=== PATIENT | female | born 1975 | race Caucasian/White ===

== ENCOUNTER 2019-10-16 07:50 | Outpatient (CLI) | payer BC ==
[2019-10-16] MEDS ORDERED: iohexol 300mg/ml 100ml inj. ONE (08:33)
== END 2019-10-16 23:59 | disposition home or self-care (01) ==
LOC: 64 CT 07:50
DX: C68.9 Malignant neoplasm of urinary organ, unspecified (principal); K76.89 Other specified diseases of liver; J98.11 Atelectasis; M47.814 Spondylosis without myelopathy or radiculopathy, thoracic region; Z90.710 Acquired absence of both cervix and uterus
CPT/HCPCS: 71260; 74177; Q9967

== ENCOUNTER 2024-03-21 18:47 | Emergency (ER) | payer MEDICARE, MEDICAID ==
[~2024-03-21] VITALS: Ht 172.7 cm; Wt 96.4 kg
[2024-03-21] MEDS: normal saline 1000ml 1,000 ML IV ONE (20:37)
[2024-03-21] MEDS: diazepam inj 5 MG/ML inj. IV ONE (20:37)
[2024-03-21 20:41] LABS: BASOPHILS % (AUTO) 0.4 % (0-1); EOSINOPHILS # (AUTO) 0.1 X10'3 (0-0.9); EOSINOPHILS % (AUTO) 1.9 % (0-6); HEMATOCRIT 34.2 % (35.0-45.0); HEMOGLOBIN 11.1 g/dl (12.0-16.0); LYMPHOCYTES # (AUTO) 1.1 X10'3 (1.1-4.8); LYMPHOCYTES % (AUTO) 18.4 % (21-51); MEAN CORPUSCULAR HEMOGLOBIN 29.9 PG (27.0-31.0); MEAN CORPUSCULAR HGB CONC 32.3 g/dL (33.0-36.5); MEAN CORPUSCULAR VOLUME 92.6 FL (78-98); MONOCYTES # (AUTO) 0.7 X10'3 (0-0.9); MONOCYTES % (AUTO) 10.5 % (2-12); NEUTROPHILS # (AUTO) 4.3 X10'3 (1.8-7.7); NEUTROPHILS % (AUTO) 68.8 % (42-75); PLATELET COUNT 224 X10'3 (140-440); RED CELL DISTRIBUTION WIDTH 14.6 % (11.5-14.5); WHITE BLOOD COUNT 6.2 X10'3 (4.5-11.0)
[2024-03-21 20:57] LABS: ALANINE AMINOTRANSFERASE 27 U/L (12-78); ALBUMIN 3.6 G/DL (3.4-5.0); ALBUMIN/GLOBULIN RATIO 1.4 (1.1-1.5); ALKALINE PHOSPHATASE 80 IU/L (46-116); ANION GAP 8 (8-16); ASPARTATE AMINO TRANSFERASE 28 U/L (10-37); BILIRUBIN,TOTAL 0.3 MG/DL (0.1-1.0); BLOOD UREA NITROGEN 18 MG/DL (7-18); BUN/CREATININE RATIO 14.9 (10.0-20.0); CALCIUM 8.2 MG/DL (8.5-10.1); CHLORIDE 106 MMOL/L (99-107); CREATININE 1.21 MG/DL (0.40-0.90); GLUCOSE 81 MG/DL (70-104); POTASSIUM 4.1 MMOL/L (3.5-5.1); SODIUM 139 MMOL/L (135-145); TOTAL CARBON DIOXIDE 24.9 MMOL/L (24-32); TOTAL PROTEIN 6.2 G/DL (6.4-8.2); eCRCL 56 ML/MIN; eGFR 47 ML/MIN
[2024-03-21 22:08] LABS: BILIRUBIN,URINE NEGATIVE (Neg); CLARITY,URINE CLEAR (Clear); COLOR,URINE YELLOW (Yellow); GLUCOSE, URINE NEGATIVE (Neg); KETONES,URINE NEGATIVE (Neg); LEUKOCYTE ESTERASE ,URINE NEGATIVE (Neg); NITRITES, URINE NEGATIVE (Neg); OCCULT BLOOD,URINE TRACE-INTACT (Neg); PROTEIN,URINE NEGATIVE (Neg); UROBILINOGEN,URINE 0.2 E.U/dL (0.2-1.0)
[2024-03-21 22:12] LABS: UA COLLECTION TYPE VOIDED
[2024-03-21 22:24] LABS: BACTERIA,URINE FEW /HPF (Neg); RBC,URINE 0-2 /HPF (0-2); SQUAMOUS EPITHELIAL CELL,UR FEW /LPF (FEW); WBC,URINE 0-4 /HPF (0-4)
[2024-03-21 23:36] VITALS: BP 145/84; PULSE 89; RESP 20; TEMP 97.9; O2SAT 99
== END 2024-03-21 23:24 | disposition home or self-care (01) ==
LOC: ER 18:50
DX: M62.838 Other muscle spasm (principal); Z88.5 Allergy status to narcotic agent; Z88.8 Allergy status to other drugs, medicaments and biological substances
CPT/HCPCS: 36415; 80053; 81001; 85025; 96361; 96374; 99285; J3360; J7030